=== PATIENT | male | born 2000 | race Caucasian/White ===

== ENCOUNTER 2022-03-29 17:42 | Inpatient (IN) ==
[2022-03-29 18:28] LABS: ABS Eosinophils 0.1 10^3/ul (0-0.6); ABS Lymphocytes 1.6 10^3/ul (1.0-4.8); ABS Monocytes 0.5 10^3/ul (0-0.8); ABS Neutrophils 6.6 10^3/ul (1.5-7.7); Hematocrit 43 % (42-52); Hemoglobin 14.6 g/dL (14.0-18.0); Lymphocyte % 17.9 %; Mean Corpuscular HGB Conc 34 g/dL (31-36); Mean Corpuscular Hemoglobin 28 pg (27-31); Mean Corpuscular Volume 84 fL (80-94); Mean Platelet Volume 8.3 fL (7.4-10.4); Platelet Count 220 10^3/uL (150-450); Red Blood Count 5.16 10^6 /uL (4.18-5.48); Red Cell Distribution Width 14 % (10-15); White Blood Count 8.9 10^3/uL (3.5-10.8)
[2022-03-29 18:41] LABS: Urine Appearance Cloudy; Urine Bilirubin Negative (Negative); Urine Blood Negative (Negative); Urine Color Yellow; Urine Glucose Negative (Negative); Urine Ketones Negative (Negative); Urine Nitrite Negative (Negative); Urine Protein Negative (Negative); Urine Specific Gravity 1.014 (1.002-1.030); Urine Urobilinogen Negative (Negative)
[2022-03-29 19:02] LABS: Urine Benzodiazepine Screen None Detected (None Detect); Urine Cannabinoids Screen None Detected (None Detect); Urine Opiates Screen None Detected (None Detect)
[2022-03-29 19:10] LABS: ALT 40 U/L (7-52); AST 20 U/L (13-39); Acetaminophen < 15 mcg/mL; Albumin 4.5 g/dL (3.2-5.2); Albumin/Globulin Ratio 1.7 (1-3); Alcohol, S < 13 mg/dL (<13); Alkaline Phosphatase 64 U/L (35-149); Anion Gap 8 mmol/L (2-11); Blood Urea Nitrogen 13 mg/dL (6-24); CO2 Carbon Dioxide 26 mmol/L (22-32); Calcium 9.8 mg/dL (8.6-10.3); Chloride 104 mmol/L (101-111); Globulin 2.7 g/dL (2-4); Glucose 125 mg/dL (70-100); Potassium 3.9 mmol/L (3.5-5.0); Salicylate < 2.50 mg/dL (<30); Sodium 138 mmol/L (135-145); Total Protein 7.2 g/dL (6.4-8.9); eGFR CKD-EPI 118.2 (>60)
[2022-03-29 19:24] LABS: TSH Ultra Thyroid Stim Horm 3.22 mcIU/mL (0.34-5.60)
[2022-03-29] MEDS ORDERED: Al Hydrox/Mg Hydrox/Simet LIQ 30 ML UDC PO PRN (22:19)
[2022-03-30 08:00] LABS: HDL Cholesterol 40.7 mg/dL
[2022-03-30] MEDS: Vitamin THERAPEUTIC TAB PO SCH (08:58)
[2022-03-31] MEDS: Vitamin THERAPEUTIC TAB PO SCH (08:55)
[2022-04-01] MEDS: Vitamin THERAPEUTIC TAB PO SCH (08:50)
[2022-04-02] MEDS: Vitamin THERAPEUTIC TAB PO SCH (08:04)
[2022-04-02] MEDS ORDERED: LORazepam 2 mg VIAL 1 ml IM ONE (14:06)
[2022-04-02] MEDS ORDERED: Haloperidol 5 mg/ml SDV IV/IM 5 MG/ML AMP IM ONE (14:06)
[2022-04-02] MEDS ORDERED: Lorazepam PYXIS KEY PRN (14:06)
[2022-04-02] MEDS ORDERED: Lorazepam PYXIS KEY ONE (14:06)
[2022-04-02] MEDS ORDERED: LORazepam 2 mg VIAL 1 ml ONE (14:07)
[2022-04-02] MEDS ORDERED: Haloperidol 5 mg/ml SDV IV/IM 5 MG/ML AMP ONE (14:07)
[2022-04-02] MEDS ORDERED: Albuterol HFA INHALER 8 gm MDI INH PRN (16:11)
[2022-04-02] MEDS ORDERED: Nicotine GUM 2MG FRUIT FLAVOR PO PRN (16:14)
[2022-04-02] MEDS: Mometasone/Formoter 100/5 MDI INH SCH (19:33)
[2022-04-03] MEDS: Mometasone/Formoter 100/5 MDI INH SCH ×2 (11:01→19:31)
[2022-04-03] MEDS: Vitamin THERAPEUTIC TAB PO SCH (11:01)
[2022-04-03 17:57] VITALS: BP 129/72
[2022-04-04] MEDS: Vitamin THERAPEUTIC TAB PO SCH (09:08)
[2022-04-04] MEDS: Mometasone/Formoter 100/5 MDI INH SCH (09:10)
== END 2022-04-04 14:01 | disposition home or self-care (01) | DRG 751 ==
LOC: ED 17:42 → BSU 20:30
PROVIDERS: ADMIT Psychiatry & Neurology Addiction Psychiatry; ATTEND Psychiatry & Neurology Addiction Psychiatry